=== PATIENT | female | born 1960 | race Two or more races ===

== ENCOUNTER 2019-10-01 12:27 | Outpatient (CLI) | payer OTHER ==
[~2019-10-01] VITALS: Ht 157.5 cm; Wt 68.0 kg
[2019-10-01] MEDS ORDERED: LIPO-FLAVONOID1 EACH PO (13:42)
== END 2019-10-01 14:24 | disposition home or self-care (01) ==
LOC: OFIC 805 12:27
PROVIDERS: ATTEND Otolaryngology
DX: H90.41 Sensorineural hearing loss, unilateral, right ear, with unrestricted hearing on the contralateral side (principal); R42 Dizziness and giddiness; H61.21 Impacted cerumen, right ear

== ENCOUNTER → 2019-11-08 | Outpatient (CLI) | payer OTHER ==
[~2019-11-08] MED LIST: LIPO-FLAVONOID1 EACH PO
== END | disposition home or self-care (01) ==
LOC: OFIC 805 08:56
PROVIDERS: ATTEND Otolaryngology
DX: R42 Dizziness and giddiness (principal); H90.6 Mixed conductive and sensorineural hearing loss, bilateral

== ENCOUNTER 2020-01-02 10:25 | Outpatient (CLI) | payer OTHER | END 2020-01-02 11:25 | disposition home or self-care (01) | LOC: OFIC 805 10:25 | PROVIDERS: ATTEND Otolaryngology | DX: H90.6 Mixed conductive and sensorineural hearing loss, bilateral (principal); R42 Dizziness and giddiness ==

== ENCOUNTER 2020-02-01 13:48 | Outpatient (CLI) | payer OTHER | END 2020-02-01 14:20 | disposition home or self-care (01) | LOC: OFIC 805 13:48 | PROVIDERS: ATTEND Otolaryngology Otology & Neurotology | DX: H90.41 Sensorineural hearing loss, unilateral, right ear, with unrestricted hearing on the contralateral side (principal); R42 Dizziness and giddiness; H90.71 Mixed conductive and sensorineural hearing loss, unilateral, right ear, with unrestricted hearing on the contralateral side ==

== ENCOUNTER → 2020-05-05 | Outpatient (CLI) | payer OTHER | END | disposition home or self-care (01) | LOC: OFIC 805 13:00 | PROVIDERS: ATTEND Otolaryngology Otology & Neurotology | DX: H90.41 Sensorineural hearing loss, unilateral, right ear, with unrestricted hearing on the contralateral side (principal); H90.71 Mixed conductive and sensorineural hearing loss, unilateral, right ear, with unrestricted hearing on the contralateral side; H81.01 Meniere's disease, right ear ==